=== PATIENT | male | born 1990 | race Native Hawaiian/Other Pacific Islander ===

== ENCOUNTER 2023-03-29 12:37 | Emergency (ER) | payer OTHER ==
[~2023-03-29] VITALS: Ht 167.6 cm; Wt 68.0 kg
[2023-03-29 13:00] VITALS: TEMP 98.3
[2023-03-29 14:39] VITALS: BP 121/85
== END 2023-03-29 14:39 | disposition home or self-care (01) ==
LOC: ED 12:37
DX: S42.292A Other displaced fracture of upper end of left humerus, initial encounter for closed fracture (principal); W17.89XA Other fall from one level to another, initial encounter; Y93.89 Activity, other specified; Y92.520 Airport as the place of occurrence of the external cause; Y99.9 Unspecified external cause status; F17.210 Nicotine dependence, cigarettes, uncomplicated; F12.90 Cannabis use, unspecified, uncomplicated
CPT/HCPCS: 99283